=== PATIENT | male | born 1960 | race Caucasian/White ===

== ENCOUNTER → 2016-08-27 11:02 | Outpatient (CLI) | payer BC | END | disposition home or self-care (01) | LOC: D.RAD 11:02 | DX: M54.16 Radiculopathy, lumbar region (principal) ==

== ENCOUNTER → 2016-08-31 20:02 | Outpatient (CLI) | payer BC | END | disposition home or self-care (01) | LOC: D.LABREF 20:02 | DX: R94.4 Abnormal results of kidney function studies (principal); E78.5 Hyperlipidemia, unspecified; R94.5 Abnormal results of liver function studies ==

== ENCOUNTER 2017-08-22 17:17 | Emergency (ER) | payer BC ==
[2017-08-22 17:40] LABS: BASOPHILS 0.6 % (0-2); HEMATOCRIT 48.6 % (42.0-54.0); HEMOGLOBIN 16.1 g/dL (13.5-17.5); IMMATURE GRANULOCYTES 0.3 % (0-5); LYMPHOCYTES 25.9 % (15-50); MCH 28.4 pg (26.0-34.0); MCHC 33.1 g/dL (31.0-37.0); MCV 85.9 fL (80.0-100.0); MEAN PLATELET VOLUME 11.7 fL (7.4-10.4); MONOCYTES 7.1 % (2-11); NEUTROPHILS 65.1 % (40-80); PLATELET COUNT 296 10x3/uL (130-400); RBC 5.66 10x6/uL (4.20-6.10); RDW 12.7 % (11.5-14.5)
[2017-08-22 18:03] LABS: APPEARANCE HAZY (CLEAR); BACTERIA FEW /hpf (NONE SEEN); BILIRUBIN NEGATIVE (NEGATIVE); COLOR YELLOW (YELLOW); EPITHELIAL CELLS 0-5 /hpf (0-5); GLUCOSE NEGATIVE (NEGATIVE); KETONE MODERATE mg/dL (NEGATIVE); NITRITE NEGATIVE (NEGATIVE); PROTEIN NEGATIVE (NEGATIVE); RED CELLS - URINE >50 /hpf (0-5); SPECIFIC GRAVITY 1.025 (1.005-1.020); UROBILINOGEN NORMAL (NORMAL); WHITE CELLS - URINE 0-5 /hpf (0-5)
[2017-08-22 18:47] LABS: APTT 28.7 SECONDS (22.8-39.4); INR 1.08 (0.85-1.17); PROTIME 13.6 SECONDS (11.6-15.0)
[2017-08-22 18:48] LABS: D-DIMER-QUANTITATIVE < 0.27 ug/mLFEU (0.20-0.54)
[2017-08-22 18:54] LABS: ALBUMIN 3.5 g/dL (3.4-5.0); ALKALINE PHOSPHATASE 75 U/L (46-116); ALT (SGPT) 37 U/L (10-68); CALC OSMOLALITY 284 mosm/kg (275-300); CALCIUM 8.2 mg/dL (8.5-10.1); CHLORIDE - SERUM 104 mmol/L (98-107); CREATININE - SERUM 1.4 mg/dL (0.6-1.3); GLUCOSE 103 mg/dL (74-106); POTASSIUM - SERUM 3.9 mmol/L (3.5-5.1); PROTEIN - SERUM 7.3 g/dL (6.4-8.2); SODIUM 140 mmol/L (136-145); UREA NITROGEN 29 mg/dL (7-18); eGFR NON AFRICAN AMERICAN 56 mL/min (90-120)
[2017-08-22 19:12] LABS: AMYLASE - SERUM 54 U/L (25-115); CREATINE KINASE 242 UL (21-232); LIPASE 132 U/L (73-393)
[2017-08-22 19:15] LABS: TROPONIN-I < 0.017 ng/mL (0.000-0.060)
== END 2017-08-22 19:55 | disposition home or self-care (01) ==
LOC: D.ER 17:17
PROVIDERS: Family Medicine
DX: N20.1 Calculus of ureter (principal)

== ENCOUNTER 2017-08-25 05:36 | Emergency (ER) | payer BC ==
[2017-08-25 05:54] LABS: BASOPHILS 0.3 % (0-2); EOSINOPHILS 0.8 % (0-7); HEMOGLOBIN 15.5 g/dL (13.5-17.5); IMMATURE GRANULOCYTES 0.3 % (0-5); MCH 28.9 pg (26.0-34.0); MCV 87.7 fL (80.0-100.0); MEAN PLATELET VOLUME 11.3 fL (7.4-10.4); MONOCYTES 7.1 % (2-11); NEUTROPHILS 80.5 % (40-80); RBC 5.36 10x6/uL (4.20-6.10); RDW 12.7 % (11.5-14.5); WBC 15.1 10x3/uL (4.8-10.8)
[2017-08-25 05:59] LABS: PLATELET COUNT 197 10x3/uL (130-400)
[2017-08-25 06:08] LABS: ALBUMIN 3.6 g/dL (3.4-5.0); ANION GAP 11.7 mmol/L (8-16); BILIRUBIN - TOTAL 0.83 mg/dL (0.2-1.3); CARBON DIOXIDE 29.9 mmol/L (21.0-32.0); CREATININE - SERUM 1.6 mg/dL (0.6-1.3); POTASSIUM - SERUM 3.6 mmol/L (3.5-5.1); PROTEIN - SERUM 7.8 g/dL (6.4-8.2)
[2017-08-25 07:17] LABS: APPEARANCE HAZY (CLEAR); BILIRUBIN NEGATIVE (NEGATIVE); COLOR DK YELLOW (YELLOW); GLUCOSE NEGATIVE (NEGATIVE); KETONE NEGATIVE (NEGATIVE); NITRITE NEGATIVE (NEGATIVE); PROTEIN TRACE mg/dL (NEGATIVE); SPECIFIC GRAVITY 1.025 (1.005-1.020); UROBILINOGEN NORMAL (NORMAL)
[2017-08-25 07:23] LABS: AMORPHOUS SEDIMENT <1+ /lpf (NONE SEEN); BACTERIA FEW /hpf (NONE SEEN); EPITHELIAL CELLS 0-5 /hpf (0-5); MUCUS >1+ /lpf (NONE SEEN); RED CELLS - URINE 0-5 /hpf (0-5); WHITE CELLS - URINE 0-5 /hpf (0-5)
== END 2017-08-25 08:29 | disposition home or self-care (01) ==
LOC: D.ER 05:36
PROVIDERS: Family Medicine
DX: N20.1 Calculus of ureter (principal)

== ENCOUNTER 2018-11-26 11:18 | Observation (INO) | payer BC ==
[2018-11-26] MEDS ORDERED: BYSTOLIC10 MG PO (11:23)
[2018-11-26] MEDS ORDERED: BAYER CHEWABLE81 MG PO ×2 (11:23→14:22)
[2018-11-26 11:34] LABS: BASOPHILS 0.8 % (0-2); EOSINOPHILS 0.7 % (0-7); HEMATOCRIT 46.5 % (42.0-54.0); IMMATURE GRANULOCYTES 0.6 % (0-5); LYMPHOCYTES 27.2 % (15-50); MCH 29.1 pg (26.0-34.0); MCHC 34.4 g/dL (31.0-37.0); MCV 84.7 fL (80.0-100.0); MEAN PLATELET VOLUME 11.8 fL (7.4-10.4); MONOCYTES 7.3 % (2-11); NEUTROPHILS 63.4 % (40-80); PLATELET COUNT 206 10x3/uL (130-400); RBC 5.49 10x6/uL (4.20-6.10); RDW 12.7 % (11.5-14.5)
[2018-11-26 11:45] LABS: APTT 28.6 SECONDS (22.8-39.4); INR 1.02 (0.85-1.17); PROTIME 12.9 SECONDS (11.6-15.0)
[2018-11-26 11:47] VITALS: BP 125/70
[2018-11-26 11:54] LABS: ALBUMIN 3.9 g/dL (3.4-5.0); ALKALINE PHOSPHATASE 86 U/L (46-116); ALT (SGPT) 32 U/L (10-68); BILIRUBIN - TOTAL 1.12 mg/dL (0.2-1.3); CALC OSMOLALITY 284 mosm/kg (275-300); CALCIUM 9.1 mg/dL (8.5-10.1); CARBON DIOXIDE 30.7 mmol/L (21.0-32.0); CHLORIDE - SERUM 105 mmol/L (98-107); CREATININE - SERUM 1.6 mg/dL (0.6-1.3); GLUCOSE 124 mg/dL (74-106); POTASSIUM - SERUM 5.2 mmol/L (3.5-5.1); PROTEIN - SERUM 7.7 g/dL (6.4-8.2); SODIUM 141 mmol/L (136-145); UREA NITROGEN 20 mg/dL (7-18); eGFR NON AFRICAN AMERICAN 48 mL/min (90-120)
[2018-11-26 12:06] LABS: CKMB 1.1 U/L (0.0-3.6); CREATINE KINASE 94 UL (21-232); MAGNESIUM - SERUM 2.1 mg/dL (1.8-2.4); THYROID STIMULATING HORMONE 2.04 uIU/mL (0.36-3.74); TROPONIN-I < 0.017 ng/mL (0.000-0.060)
[2018-11-26] MEDS ORDERED: MELATONIN 3 MG1 TAB PO (14:23)
[2018-11-26] MEDS ORDERED: ASCORBIC ACID500 MG PO (14:23)
[2018-11-26] MEDS ORDERED: CO Q-10200 MG PO (14:23)
--- NOTE | 2018-11-26 14:56 | NUR ---
GABRIEL WILL BE HERE SOON TO COMPLETE PATIENTS MRI.
[2018-11-26 15:57] LABS: APPEARANCE CLEAR (CLEAR); BILIRUBIN NEGATIVE (NEGATIVE); COLOR YELLOW (YELLOW); GLUCOSE NEGATIVE (NEGATIVE); KETONE NEGATIVE (NEGATIVE); NITRITE NEGATIVE (NEGATIVE); PROTEIN NEGATIVE (NEGATIVE); SPECIFIC GRAVITY 1.015 (1.005-1.020); UROBILINOGEN NORMAL (NORMAL)
[2018-11-26 16:10] VITALS: BP 122/71
[2018-11-26 16:13] VITALS: BP 124/74; BP 131/83
[2018-11-26 16:32] VITALS: BP 112/76; BMI 27.5
[2018-11-26 18:56] LABS: CKMB 1.8 U/L (0.0-3.6); CREATINE KINASE 195 UL (21-232); TROPONIN-I < 0.017 ng/mL (0.000-0.060)
--- NOTE | 2018-11-26 19:29 | NUR ---
RECIEVED LAYTING IN BED WITH EYES OPEN AND TV ON. SPOUSE AT BEDSIDE. ORTHO B/P CONTINUED. IV TO RIGHT AC WITH NS AT 100CC/HR. LUNG SOUNDS CLEAR AND [id number]. NO EDEMA OBSERVED.DENIES ANY NEEDS AT THIS TIME.
[2018-11-26 20:00] VITALS: BP 148/81; BP 148/82; BP 152/74
[2018-11-26 23:45] LABS: CKMB 2.1 U/L (0.0-3.6); CREATINE KINASE 329 UL (21-232); TROPONIN-I < 0.017 ng/mL (0.000-0.060)
[2018-11-27] VITALS: BP 103/51
[2018-11-27 02:10] LABS: BASOPHILS 0.6 % (0-2); EOSINOPHILS 1.2 % (0-7); HEMOGLOBIN 13.4 g/dL (13.5-17.5); IMMATURE GRANULOCYTES 0.2 % (0-5); LYMPHOCYTES 28.3 % (15-50); MCH 28.6 pg (26.0-34.0); MCHC 33.5 g/dL (31.0-37.0); MCV 85.3 fL (80.0-100.0); MEAN PLATELET VOLUME 11.4 fL (7.4-10.4); MONOCYTES 8.5 % (2-11); NEUTROPHILS 61.2 % (40-80); RBC 4.69 10x6/uL (4.20-6.10); WBC 8.5 10x3/uL (4.8-10.8)
[2018-11-27 02:12] LABS: PLATELET COUNT 145 10x3/uL (130-400)
[2018-11-27 02:31] LABS: ALKALINE PHOSPHATASE 63 U/L (46-116); ALT (SGPT) 27 U/L (10-68); CALCIUM 8.1 mg/dL (8.5-10.1); CARBON DIOXIDE 27.3 mmol/L (21.0-32.0); CHLORIDE - SERUM 110 mmol/L (98-107); CKMB 1.6 U/L (0.0-3.6); CREATINE KINASE 306 UL (21-232); CREATININE - SERUM 1.3 mg/dL (0.6-1.3); GLUCOSE 106 mg/dL (74-106); PROTEIN - SERUM 5.9 g/dL (6.4-8.2); SODIUM 143 mmol/L (136-145); TROPONIN-I < 0.017 ng/mL (0.000-0.060); eGFR NON AFRICAN AMERICAN 61 mL/min (90-120)
[2018-11-27 02:32] LABS: ALBUMIN 2.9 g/dL (3.4-5.0); CALC OSMOLALITY 286 mosm/kg (275-300); POTASSIUM - SERUM 4.1 mmol/L (3.5-5.1); UREA NITROGEN 19 mg/dL (7-18)
[2018-11-27 04:00] VITALS: BP 121/60
--- NOTE | 2018-11-27 04:15 | NUR ---
ORTHOSTATIC B/P ARE LYING 152/74, SITTING 148/82 AND STANDING 148/81.
--- NOTE | 2018-11-27 07:00 | NUR ---
RECEIVED REPORT. ASSUMED CARE OF PATIENT. RESTING WITH EYES CLOSED ON LEFT LATERAL SIDE. EASILY AROUSED. RESP EVEN AND UNLABORED. NO DISTRESS. CALL LIGHT WITHIN REACH.
[2018-11-27 08:36] VITALS: BP 137/64
--- NOTE | 2018-11-27 12:45 | NUR ---
PATIENT LEFT UNIT VIA WHEELCHAIR AT 1220 WITH ALL PERSONAL BELONGINGS. PATIENT DISCHARGED TO HOME WITH HIS . PATIENT IN NO DISTRESS UPON LEAVING UNIT.
--- NOTE | 2018-11-27 19:04 | MORECARE ---
CASE MANAGEMENT DISCHARGE SUMMARY PATIENT: BERTA HINSON UNIT: [id number] ADM DATE: 11/26/18 AGE: 57 : 64 SEX: M ROOM/BED: D.2135 AUTHOR: JOSE CURIEL PHYSICIAN: REFERRING PHYSICIAN: ANTOINETTE SNOWDEN MD DATE OF SERVICE: 11/27/18 Discharge Plan Patient Name: BERTA HINSON Facility: [facility]:[place] : 1960 Planned Disposition: Anticipated Discharge Date: Discharge Date: 11/27/2018 Expected LOS: Initial Reviewer: [id number] Initial Review Date: 11/26/2018 Generated: 11/27/18 8:04 pm Patient Name: BERTA HINSON Page [id number] at 1904 All edits/amendments must be made on the electronic document DICTATION DATE: 11/27/181903 SENIOR REVENUE ACCOUNTANT: KEVIN 11/27/181903 RPT#: [id number] DC DATE:11/27/18 STATUS: DIS IN [facility] [address] [place] [address] END OF REPORT
--- NOTE | 2018-11-28 09:55 | CN ---
PATIENT NAME:BERTA HINSON MEDICAL RECORD: [id number] : 64 LOCATION:D. D.2135 ADMIT DATE: 11/26/18 ACCOUNT: [id number] CONSULTING PHYSICIAN: JACK SANTORO MD REFERRING PHYSICIAN: ANTOINETTE SNOWDEN MD DATE OF CONSULTATION: 11/27/2018 HISTORY OF PRESENT ILLNESS: A 57-year-old gentleman with no known history of coronary artery disease. He was playing softball yesterday and had 2 episodes of syncope. He has been having difficulty finding a right dosage of medication for his hypertension, has been ongoing for about 9 months. He noticed marked fatigue and tiredness after taking his Bystolic, which he is on 10 mg a day. Also readily admits to drinking not more than 16 ounces of water at this point. Currently, he feels well after hydration. We are asked to see him concerning his cardiovascular status. PAST MEDICAL HISTORY: Includes history of hypertension. MEDICATIONS: Include Bystolic 10 daily, aspirin 81 daily, and melatonin 6 at bedtime. ALLERGIES: None known. SOCIAL HISTORY: . Nonsmoker and nondrinker. No set exercise program. He is able to walk without difficulty, play golf, etc. REVIEW OF SYSTEMS: The patient reports easy bruising but reports no swollen glands. The patient reports no fever, no night sweats, no significant weight gain, no significant weight loss. No significant exercise tolerance. The patient reports no dry eyes, no irritation, no vision change. Patient reports no difficulty hearing and no ear pain. Patient reports no frequent nose bleeds or nose and sinus problems. Patient reports on arm pain on exertion. No shortness of breath while lying down. No history of heart murmur. Patient reports no cough, no wheezing or coughing up blood. Patient reports no abdominal pain, no vomiting. Normal appetite. No diarrhea and not vomiting blood. No nausea and no constipation. Patient reports no incontinence. No difficulty urinating. No hematuria. No increased frequency. Patient reports no muscle aches. No weakness, no arthralgias, no back pain. No swelling of the extremities. Patient reports no abnormal mole, no jaundice, no rashes. Reports no loss of consciousness. No weakness and no numbness. No seizures, dizziness, or headaches. The patient reports no depression, no sleep disturbance, feeling safe in a relationship and no alcohol abuse. Patient reports on fatigue. Reports no runny nose or sinus pressure. No itching, no hives, and no frequent sneezing. PHYSICAL EXAMINATION: GENERAL: Pleasant gentleman, in no acute distress, appears stated age. VITAL SIGNS: Blood pressure 137/64. Pulse 50 and regular. HEENT: Normocephalic and atraumatic. NECK: No bruits noted. HEART: Regular. No gallops are noted. LUNGS: Good air excursion. ABDOMEN: Soft and nontender. EXTREMITIES: Pulses 2+ with no edema. CONSULT REPORT [id number] BERTA HINSON DIAGNOSTIC DATA: ECG without acute change. IMPRESSION: At this point in time, I would hold medications and I discussed lifestyle changes. I will see him back in the clinic. He will need echo and stress testing at some point in time. Further recommendations based on above. TRANSINT:[id number] Voice Confirmation ID: [id number] DOCUMENT ID: [id number] JACK SANTORO MD at 0955 CC: [id number] DICTATION DATE: 11/27/18 0950 WRITER: 11/27/18 1345 DIS IN 11/27/18 [facility] [address] [place] [address]
== END 2018-11-27 12:20 | disposition home or self-care (01) ==
LOC: D.ER 11:18 → D.M2 13:20 → OBSVTIME 13:20 → D.M2 13:20 → D.ER 13:20 → D.M2 11-27 12:20
PROVIDERS: Family Medicine; ADMIT Internal Medicine Nephrology; ATTEND Internal Medicine Nephrology
DX: R55 Syncope and collapse (principal); N17.9 Acute kidney failure, unspecified; E86.9 Volume depletion, unspecified; E87.5 Hyperkalemia; I10 Essential (primary) hypertension; T44.7X5A Adverse effect of beta-adrenoreceptor antagonists, initial encounter; R00.1 Bradycardia, unspecified